=== PATIENT | male | born 2000 | race Caucasian/White ===

== ENCOUNTER → 2023-12-04 | Outpatient (CLI) | payer OTHER ==
[~2023-12-04] MED LIST: PROHANCE 279.3MG/ML 15ML VIAL As Ordered ONE; PROHANCE 279.3MG/ML 5ML VIAL As Ordered ONE
== END ==
LOC: M RAD 16:10
PROVIDERS: ATTEND Student in an Organized Health Care Education/Training Program
DX: S06.9X0A Unspecified intracranial injury without loss of consciousness, initial encounter (principal); G44.89 Other headache syndrome; J01.00 Acute maxillary sinusitis, unspecified; Y93.9 Activity, unspecified; Y92.9 Unspecified place or not applicable
CPT/HCPCS: 70543; 70551; A9576